=== PATIENT | male | born 1960 | race Caucasian/White ===

== ENCOUNTER 2016-12-14 11:22 | Emergency (ER) | payer OTHER ==
[~2016-12-14] VITALS: Ht 177.8 cm; Wt 90.7 kg
[~2016-12-14 11:22] MED LIST: ALPRAZOLAM0.5 M4 PO; AUGMENTIN 875 M1 TAB PO; AUGMENTIN 875-1 EACH PO; BYSTOLIC10 M1 PO; BYSTOLIC5 M1 PO; CIPRODEX 0.3%-7.5 ML OTIC; CRESTOR20 M2 PO; CYCLOBENZAPRINE10 M1 PO; DULOXETINE HCL60 MG PO; EPIPEN 2-P0.3 MG/0.3 IM; GABAPENTIN300 M2 PO; LISINOPRIL5 M1 PO; LORAZEPAM1 M1 PO; MEDROL4 M2 PO; MELOXICAM15 M1 PO; NASONEX0.05 MG/Ac INH; NOVOLOG FL100 UNIT/1 SC; OXYCODONE HCL20 M2 PO; OXYCONTIN30 M1 PO; OXYCONTIN80 M1 PO; PANTOPRAZOLE SO40 M1 PO; VICTOZA 2-0.6 MG/0.1 SC; XIGDUO XR 5 MG1 EAC1 PO
--- NOTE | 2016-12-14 12:50 | ED GI/GU/ABDOMINAL COMPLAINT ---
History of Present Illness General Chief Complaint: Abdominal Pain/Flank Pain Stated Complaint: L FLANK PAIN Source: patient Exam Limitations: no limitations Vital Signs & Intake/Output Vital Signs & Intake/Output ED Intake and Output 12/15 0000 12/14 1200 Intake Total 1000 Output Total Balance 1000 Intake, IV 1000 Patient 200 lb Weight Allergies Coded Allergies: pregabalin (From LYRICA) (Severe, RASH 09/03/16) coconut oil (Intermediate, HIVES, RASH, ITCHING 09/03/16) coconut (COCONUT WATER - ANAPHYLAXIS 09/03/16) Reconcile Medications Cyclobenzaprine HCl 10 MG TABLET 1 TAB PO QHS PRN MUSCLE SPASMS (Reported) Cyclobenzaprine HCl 5 MG TABLET 1 TAB PO TIDPRN PRN muscle spasms Dapagliflozin/Metformin HCl (Xigduo XR 5 MG-1,000 MG Tablet) 5 MG-1,000 MG TAB.BP.24H 1 TAB PO DAILY DM (Reported) Duloxetine HCl 60 MG CAPSULE.DR 1 CAP PO DAILY NERVE PAIN (Reported) Epinephrine (Epipen 2-Madhav) 0.3 MG/0.3 ML AUTO.INJCT 0.3 MG IM AD PRN ALLERGIC REACTION (Reported) Gabapentin 300 MG CAPSULE 2 CAP PO TID DIABETIC NEUROPATHY (Reported) Insulin Aspart, Recombinant (Novolog Flexpen) 100 UNIT/ML INSULN.PEN DM ( Reported) Liraglutide (Victoza 2-Madhav) 0.6 MG/0.1 ML (18 MG/3 ML) PEN.INJCTR 1.8 MG SC DAILY DM (Reported) Lisinopril 5 MG TABLET 1 TAB PO DAILY BP (Reported) Lorazepam 1 MG TABLET 1 TAB PO QPM COUNTERACTS BYSTOLIC (Reported) Meloxicam 15 MG TABLET 1 TAB PO DAILY DIABETIC NEUROPATHY (Reported) Oxycodone HCl 15 MG TABLET 1 TAB PO 4XDP PRN PAIN (Reported) Pantoprazole Sodium 40 MG TABLET.DR 1 TAB PO DAILY GI (Reported) Rosuvastatin Calcium (Crestor) 20 MG TABLET 1 TAB PO DAILY CHOLESTEROL ( Reported) Triage Note: 56 Y/O MALE C/O L FLANK PAIN, ONSET 4 HOURS AGO. PT STATES SUDDEN ONSET WITH NO TRAUMA OR INJURIES. DENIES OTHER COMPLAINTS, "I THOUGHT I JUST PULLED A MUSCLE". AFEBRILE. PT TAKES PERCOCET DAILY AND LAST DOSE 0800. Triage Nurses Notes Reviewed? yes HPI: This patient is a 56-year-old male who presented to the emergency department today for evaluation of the left flank pain which began approximately 4 hours prior to arrival in the emergency department. The patient denied a history of any kidney stones. The patient reported that the pain gets up to 10 out of 10 and comes and goes in waves. He reported that he occasionally gets intermittent sharp in his left mid abdomen. The patient reported that he did have an episode of nausea earlier, but not currently and with no associated vomiting. The patient denied any fevers, chills, chest pain, difficulty breathing, urinary burning, urgency, frequency, blood in the urine, bowel or bladder incontinence, or any saddle paresthesias. The patient reported that he takes 15 mg of Percocet throughout the day daily for, "a Worker's Compensation injury." Past History Travel History Traveled to [facility] past 21 day No Medical History Any Pertinent Medical History? see below for history Neurological: NONE EENT: "LT EAR PROBLEMS" Cardiovascular: hypertension Respiratory: NONE Gastrointestinal: GERD Hepatic: NONE Renal: NONE Musculoskeletal: NONE Psychiatric: NONE Endocrine: diabetes Blood Disorders: NONE Cancer(s): NONE ONCOLOGY CONSULTANT/Reproductive: NONE History of MRSA: No History of VRE: No History of CDIFF: No Tetanus Vaccine: 01/28/14 Surgical History Surgical History: non-contributory Psychosocial History Who do you live with Significant Other Services at Home None What is your primary language Maori Tobacco Use: Current Daily Use Daily Tobacco Use Amount/Type: => 5 Cigarettes daily Family History Hx Contributory? No Review of Systems Review of Systems Constitutional: Reports: no symptoms. EENTM: Reports: no symptoms. Respiratory: Reports: no symptoms. Cardiovascular: Reports: no symptoms. GI: Reports: see HPI. Genitourinary: Reports: no symptoms. Musculoskeletal: Reports: see HPI. Skin: Reports: no symptoms. Neurological/Psychological: Reports: no symptoms. Hematologic/Endocrine: Reports: see HPI. All Other Systems: Reviewed and Negative Physical Exam Physical Exam Gastrointestinal: normal bowel sounds, soft, non-tender, no organomegaly, no rebound or guarding. No peritoneal signs. Negative Patterson sign. No hernias point tenderness Comments: Well-developed well-nourished person in no acute distress HEENT: Normal EENT exam, normocephalic, moist mucous membranes Pupils equally round and reactive to light. Neck: Supple, no lymphadenopathy, full range of motion Back: Normal gait. No CVA tenderness. No midline tenderness Cardiovascular: Regular rate and rhythm with no murmurs Respiratory: No respiratory distress. Speaking in full sentences Extremity: Normal and equal pulses Neuro: Alert oriented x3, cranial nerves II through XII grossly intact. Skin: No appreciable rash on exposed skin, skin is warm and dry. Psych: Mood and affect is normal Core Measures ACS in differential dx? No Severe Sepsis Present: No Septic Shock Present: No Progress Differential Diagnosis: AAA, AMI, appendicitis, biliary colic, bowel obstruction , colon cancer, cholecystitis, diverticulitis, gastritis, hepatitis, ischemic bowel, inflamm bowel dis, pancreatitis, PUD/GERD, perforated viscous, pyelonephritis, ureterolithiasis, urinary retention, urethritis, UTI/pyelo Plan of Care: Orders Procedure Date/time Status CULTURE,URINE 12/14 1250 Active COMPREHENSIVE METABOLIC PANEL 12/14 1250 Complete CBC WITHOUT DIFFERENTIAL 12/14 1250 Complete URINALYSIS 12/14 1147 Complete Laboratory Tests 12/14/16 1441: Urine Color YEL, Urine Clarity CLEAR, Urine pH 6.0, Ur Specific [place] 1.020, Urine Protein NEG, Urine Ketones NEG, Urine Nitrite NEG, Urine Bilirubin NEG, Urine Urobilinogen 0.2, Ur Leukocyte Esterase NEG, Ur Microscopic EXAM NOT REQUIRED, Urine Hemoglobin NEG, Urine Glucose >=1000 H 12/14/16 1427: Anion Gap 8, Estimated GFR > 60, BUN/Creatinine Ratio 17.1, Glucose 153 H, Calcium 8.9, Total Bilirubin 0.7, AST 26, ALT 43, Alkaline Phosphatase 76, Total Protein 6.8, Albumin 4.1, Globulin 2.7, Albumin/Globulin Ratio 1.5 12/14/16 1330: CBC w Diff NO MAN DIFF REQ, RBC 5.72, MCV 85.5, MCH 29.5, RDW 12.7, MPV 8.6, Gran % 63.5, Lymphocytes % 28.9, Monocytes % 5.2, Eosinophils % 2.1, Basophils % 0.3, Absolute Granulocytes 5.3, Absolute Lymphocytes 2.4, Absolute Monocytes 0.4 , Absolute Eosinophils 0.2, Absolute Basophils 0, PUBS MCHC 34.5 Microbiology 12/14 1441 URINE ROUT: Urine Culture - RECD Diagnostic Imaging: Viewed by Me: CT Scan. Discussed w/RAD: CT Scan. Radiology Impression: PATIENT: JERILYN RAI PRESENT AGE: 56 PATIENT ACCOUNT NO: [id number] : 61 LOCATION: [facility] ORDERING PHYSICIAN: TIMO HUGHES PA-C SERVICE DATE: 12/14/163838 EXAM TYPE: CAT - CT ABD & PELVIS W/O IV CONTRAS EXAMINATION: CT ABDOMEN AND PELVIS WITHOUT CONTRAST CLINICAL INFORMATION: Left-sided flank pain, evaluate for urolithiasis. COMPARISON: None. TECHNIQUE: Multidetector volumetric imaging was performed from the superior aspect of the liver through the pubic symphysis. Sagittal and coronal reformatted images were obtained on the technologist's workstation. DLP: 504 mGy-cm. FINDINGS: Osseous structures imaging no focal destructive or sclerotic lesions. There is a small indirect left inguinal hernia containing only mesenteric fat. Fat along the right inguinal canal suggests a small lipoma. There are a few scattered left sided colonic diverticula without radiographic evidence of acute diverticulitis on this exam. Otherwise imaging through the gastrointestinal tract appears unremarkable. Imaging through the solid organs in the abdominal and pelvic cavity appear unremarkable. There is no evidence of lymphadenopathy. No aortic aneurysm. No intraperitoneal free fluid or free air. Lung bases are clear. Osseous structures unremarkable. IMPRESSION: 1. No evidence of an acute inflammatory intra-abdominal or pelvic abdominal process. 2. Descending and sigmoid colon diverticulosis without evidence of diverticulitis. Appendix is not identified on this exam. 3. Small left inguinal hernia. DICTATED BY: CHRISSY BUSH MD DATE/TIME DICTATED:12/14/161438 [employer] BOARD PANELS:NELL DATE/TIME TRANSCRIBED:12/14/161438 CONFIDENTIAL, DO NOT COPY WITHOUT APPROPRIATE AUTHORIZATION. <Electronically signed in Other Vendor System> SIGNED BY: CHRISSY BUSH MD 12/14/16 1456 Initial ED EKG: none Comments: 12/14/2016 4:11:12 PM: I was at the patient's bedside for reevaluation. He reported the pain is currently a 4 out of 10 and slightly better than on initial presentation. Updated him on the results of the CT scan results. No evidence of hydronephrosis or nephrolithiasis/ureterolithiasis. No evidence of urinary tract infection. The patient is afebrile and all vital signs are stable. He has received 1 L of IV fluids. He is currently resting comfortably on the stretcher and in no acute distress. Nontoxic appearing. This patient will likely have outpatient management for his symptoms and follow-up with his primary care physician which we discussed. Departure Departure Disposition: HOME OR SELF CARE Condition: Stable Clinical Impression Primary Impression: Left flank pain Referrals: REYNOLD CAUSEY PA-C (PCP/Family) Additional Instructions: Please call to make a follow-up appointment with your primary rn medicare. Please be sure to stay hydrated and take all previously prescribed medications for pain as directed. Take Flexeril as prescribed for muscle relaxation. Return to the emergency Department for any worsening symptoms or concerns. Departure Forms: Customer Survey General Discharge Information Prescriptions: Current Visit Scripts Cyclobenzaprine HCl 1 TAB PO TIDPRN PRN muscle spasms #12 TAB
[2016-12-14 13:53] LABS: ABSOLUTE BASOPHIL COUNT 0 /CUMM (0.0-0.2); ABSOLUTE EOSINOPHIL COUNT 0.2 /CUMM (0.0-0.7); ABSOLUTE GRANULOCYTE CT 5.3 /CUMM (1.4-6.5); ABSOLUTE LYMPH COUNT 2.4 /CUMM (1.2-3.4); ABSOLUTE MONOCYTE COUNT 0.4 /CUMM (0.10-0.60); BASOPHIL % 0.3 % (0.0-2.0); EOSINOPHIL % 2.1 % (0-5); GRANULOCYTE % 63.5 % (42.2-75.2); MEAN CORPUSCULAR HGB 29.5 PG (27.0-31.0); MEAN CORPUSCULAR HGB CONC 34.5 G/DL (33.0-37.0); MEAN CORPUSCULAR VOLUME 85.5 FL (80.0-94.0); MEAN PLATELET VOLUME 8.6 FL (7.4-10.4); PLATELET COUNT 166 /CUMM (130-400); RBC DISTRIBUTION WIDTH 12.7 % (11.5-14.5); RED BLOOD CELL CT 5.72 /CUMM (4.70-6.10); WHITE BLOOD CELL COUNT 8.3 /CUMM (4.8-10.8)
--- NOTE | 2016-12-14 14:56 | CT SCAN REPORT ---
EXAMINATION: CT ABDOMEN AND PELVIS WITHOUT CONTRAST CLINICAL INFORMATION: Left-sided flank pain, evaluate for urolithiasis. COMPARISON: None. TECHNIQUE: Multidetector volumetric imaging was performed from the superior aspect of the liver through the pubic symphysis. Sagittal and coronal reformatted images were obtained on the technologist's workstation. DLP: 504 mGy-cm. FINDINGS: Osseous structures imaging no focal destructive or sclerotic lesions. There is a small indirect left inguinal hernia containing only mesenteric fat. Fat along the right inguinal canal suggests a small lipoma. There are a few scattered left sided colonic diverticula without radiographic evidence of acute diverticulitis on this exam. Otherwise imaging through the gastrointestinal tract appears unremarkable. Imaging through the solid organs in the abdominal and pelvic cavity appear unremarkable. There is no evidence of lymphadenopathy. No aortic aneurysm. No intraperitoneal free fluid or free air. Lung bases are clear. Osseous structures unremarkable. IMPRESSION: 1. No evidence of an acute inflammatory intra-abdominal or pelvic abdominal process. 2. Descending and sigmoid colon diverticulosis without evidence of diverticulitis. Appendix is not identified on this exam. 3. Small left inguinal hernia.
[2016-12-14] MEDS ORDERED: OXYCODONE HCL15 M1 PO (16:00)
[2016-12-14] MEDS ORDERED: CYCLOBENZAPRINE10 M1 PO (16:01)
[2016-12-14] MEDS ORDERED: CYCLOBENZAPRINE5 M2 PO (16:44)
[2016-12-14 17:30] VITALS: BP 139/82
== END 2016-12-14 17:47 ==
LOC: ERH 11:22
PROVIDERS: Physician Assistant
DX: R10.32 Left lower quadrant pain (principal)
CPT/HCPCS: 74176; 81003; 87086; 96374; 96375; J1200; J1885

== ENCOUNTER 2016-12-16 12:28 | Emergency (ER) | payer OTHER ==
[~2016-12-16] VITALS: Ht 177.8 cm; Wt 90.7 kg
[~2016-12-16 12:28] MED LIST changes: +CYCLOBENZAPRINE5 M2 PO; +OXYCODONE HCL15 M1 PO
--- NOTE | 2016-12-16 13:03 | ED GI/GU/ABDOMINAL COMPLAINT ---
History of Present Illness General Chief Complaint: Abdominal Pain/Flank Pain Stated Complaint: LT FLANK PAIN Source: patient Exam Limitations: no limitations Vital Signs & Intake/Output Vital Signs & Intake/Output Vital Signs Date Time Temp Pulse Resp B/P Pulse O2 O2 Flow FiO2 Ox Delivery Rate 12/16 1505 98.7 74 18 122/75 96 Room Air 12/16 1354 97.8 78 22 127/69 100 Room Air 12/16 1239 96.9 72 20 152/85 99 Room Air Allergies Coded Allergies: morphine (Severe, RASH 12/16/16) pregabalin (From LYRICA) (Severe, RASH 09/03/16) coconut oil (Intermediate, HIVES, RASH, ITCHING 09/03/16) coconut (COCONUT WATER - ANAPHYLAXIS 09/03/16) Reconcile Medications Cyclobenzaprine HCl 10 MG TABLET 1 TAB PO QHS PRN MUSCLE SPASMS (Reported) Dapagliflozin/Metformin HCl (Xigduo XR 5 MG-1,000 MG Tablet) 5 MG-1,000 MG TAB.BP.24H 1 TAB PO DAILY DM (Reported) Duloxetine HCl 60 MG CAPSULE.DR 1 CAP PO DAILY NERVE PAIN (Reported) Epinephrine (Epipen 2-Madhav) 0.3 MG/0.3 ML AUTO.INJCT 0.3 MG IM AD PRN ALLERGIC REACTION (Reported) Gabapentin 300 MG CAPSULE 2 CAP PO TID DIABETIC NEUROPATHY (Reported) Ibuprofen 600 MG TABLET 1 TAB PO Q6 PRN PAIN with food Insulin Aspart, Recombinant (Novolog Flexpen) 100 UNIT/ML INSULN.PEN DM ( Reported) Liraglutide (Victoza 2-Madhav) 0.6 MG/0.1 ML (18 MG/3 ML) PEN.INJCTR 1.8 MG SC DAILY DM (Reported) Lisinopril 5 MG TABLET 1 TAB PO DAILY BP (Reported) Lorazepam 1 MG TABLET 1 TAB PO QPM PRN COUNTERACTS BYSTOLIC (Reported) Meloxicam 15 MG TABLET 1 TAB PO DAILY DIABETIC NEUROPATHY (Reported) Oxycodone HCl 15 MG TABLET 1 TAB PO 4XDP PRN PAIN (Reported) Oxycodone HCl/Acetaminophen (Percocet 5-325 MG Tablet) 5 MG-325 MG TABLET 1 TAB PO Q4-6 PRN BREAKTHROUGH PAIN Pantoprazole Sodium 40 MG TABLET.DR 1 TAB PO DAILY GI (Reported) Rosuvastatin Calcium (Crestor) 20 MG TABLET 1 TAB PO DAILY CHOLESTEROL ( Reported) Triage Note: PT TO ED C/O LEFT FLANK PAIN. SEEN IN ED 2 DAYS AGO FOR SAME. STATES NOW HE FEELS A "TEARING" PAIN. DENIES N/V/D. DENIES S/S. Triage Nurses Notes Reviewed? yes Onset: Abrupt Duration: day(s): (2) Timing: multiple episodes today Quality/Severity: moderate, sharpness Location: left flank Activities at Onset: none Modifying Factors: Worsens With: movement. HPI: 56 year old male who prsents to the ED with persistent left flank pain. He was seen in D 2 days previously for the same pain. He states he is supposed to follow up with his doctor in the office but states that he can't wait. Pain is worse with movement and deep breath. CT abdomen/pelvis done in the ED 2 days ago. Past History Travel History Traveled to [place] past 21 day No Medical History Any Pertinent Medical History? see below for history Neurological: NONE EENT: "LT EAR PROBLEMS" Cardiovascular: hypertension Respiratory: NONE Gastrointestinal: GERD Hepatic: NONE Renal: NONE Musculoskeletal: NONE Psychiatric: NONE Endocrine: diabetes Blood Disorders: NONE Cancer(s): NONE FLIGHT SERVICE SPECIALIST/Reproductive: NONE History of MRSA: No History of VRE: No History of CDIFF: No Tetanus Vaccine: 01/28/14 Surgical History Surgical History: non-contributory Psychosocial History Who do you live with Significant Other Services at Home None What is your primary language Estonian Tobacco Use: Current Daily Use Daily Tobacco Use Amount/Type: => 5 Cigarettes daily ETOH Use: denies use Illicit Drug Use: denies illicit drug use Family History Hx Contributory? No Review of Systems Review of Systems Constitutional: Denies: chills, fever. EENTM: Reports: no symptoms. Respiratory: Denies: cough, short of breath, sputum production. Cardiovascular: Denies: chest pain, palpitations. GI: Reports: abdominal pain. Genitourinary: Reports: no symptoms. Musculoskeletal: Reports: back pain. Skin: Denies: rash. Neurological/Psychological: Reports: no symptoms. Hematologic/Endocrine: Denies: bruising, bleeding. Immunologic/Allergic: Denies: splenectomy. All Other Systems: Reviewed and Negative Physical Exam Physical Exam General Appearance: well developed/nourished, alert, awake, anxious, moderate distress Head: atraumatic, normal appearance Eyes: Bilateral: normal appearance, PERRL, EOMI. Ears, Nose, Throat, Mouth: hearing grossly normal, moist mucous membrane, Tympanic normal Neck: normal inspection, supple, full range of motion Respiratory: normal breath sounds, chest non-tender, no respiratory distress Cardiovascular: regular rate/rhythm Peripheral Pulses: 2+ radial (R), 2+ radial (L) Gastrointestinal: normal bowel sounds, soft, non-tender Back: normal inspection, tender to palpation Neurologic/Psych: no motor/sensory deficits, awake, alert, oriented x 3 Skin: intact, normal color, warm/dry Core Measures ACS in differential dx? No Severe Sepsis Present: No Septic Shock Present: No Progress Differential Diagnosis: ureterolithiasis, UTI/pyelo, PE, MUSCULOSKELETAL PAIN, SHINGLES Plan of Care: Orders Procedure Date/time Status Telemetry/Diesel Stationary Engineer 12/16 1317 Active PARTIAL THROMBOPLASTIN TIME 12/16 1315 Complete PROTHROMBIN TIME 12/16 1315 Complete D-DIMER 12/16 1315 Complete URINALYSIS 12/16 1314 Active COMPREHENSIVE METABOLIC PANEL 12/16 1314 Complete CBC WITHOUT DIFFERENTIAL 12/16 1314 Complete Laboratory Tests 12/16/16 1432: PT 11.0, INR 1.05, APTT 29, D-Dimer < 200 12/16/16 1352: Anion Gap 7, Estimated GFR > 60, BUN/Creatinine Ratio 16.3, Glucose 207 H, Calcium 9.2, Total Bilirubin 0.6, AST 21, ALT 38, Alkaline Phosphatase 61, Total Protein 6.0 L, Albumin 3.5, Globulin 2.5, Albumin/Globulin Ratio 1.4 12/16/16 1318: CBC w Diff NO MAN DIFF REQ, RBC 6.01, MCV 87.6, MCH 29.3, RDW 12.6, MPV 8.8, Gran % 63.3, Lymphocytes % 28.6, Monocytes % 5.9, Eosinophils % 2.0, Basophils % 0.2, Absolute Granulocytes 5.5, Absolute Lymphocytes 2.5, Absolute Monocytes 0.5 , Absolute Eosinophils 0.2, Absolute Basophils 0, PUBS MCHC 33.4 Patient much improved after IV meds. D-Dimer is negative. Repeat labs wnl. He will follow up with his PCP in the office. labs, tele monitor, d-dimer. iv toradol, iv valium ordered. (ALE CRAWFORD,ANTIONETTE) Initial ED EKG: NSR Departure Departure Time of Disposition: 1603 Disposition: HOME OR SELF CARE Condition: Stable Clinical Impression Primary Impression: Flank pain Referrals: PADILLA HESS,REYNOLD Jenkins (PCP/Family) Additional Instructions: Continue you Flexeril. Take the ibuprofen and a Percocet as directed. Please follow up with her doctor on Sunday. Return to the ER for any changing or worsening symptoms. Departure Forms: Customer Survey General Discharge Information Prescriptions: Current Visit Scripts Ibuprofen 1 TAB PO Q6 PRN PAIN #30 TAB with food Oxycodone HCl/Acetaminophen (Percocet 5-325 MG Tablet) 1 TAB PO Q4-6 PRN BREAKTHROUGH PAIN #10 TAB
[2016-12-16 13:31] LABS: ABSOLUTE BASOPHIL COUNT 0 /CUMM (0.0-0.2); ABSOLUTE EOSINOPHIL COUNT 0.2 /CUMM (0.0-0.7); ABSOLUTE GRANULOCYTE CT 5.5 /CUMM (1.4-6.5); ABSOLUTE LYMPH COUNT 2.5 /CUMM (1.2-3.4); ABSOLUTE MONOCYTE COUNT 0.5 /CUMM (0.10-0.60); BASOPHIL % 0.2 % (0.0-2.0); GRANULOCYTE % 63.3 % (42.2-75.2); HEMATOCRIT 52.6 % (42-52); MEAN CORPUSCULAR HGB 29.3 PG (27.0-31.0); MEAN CORPUSCULAR HGB CONC 33.4 G/DL (33.0-37.0); MEAN CORPUSCULAR VOLUME 87.6 FL (80.0-94.0); MEAN PLATELET VOLUME 8.8 FL (7.4-10.4); PLATELET COUNT 153 /CUMM (130-400); RBC DISTRIBUTION WIDTH 12.6 % (11.5-14.5); RED BLOOD CELL CT 6.01 /CUMM (4.70-6.10); WHITE BLOOD CELL COUNT 8.6 /CUMM (4.8-10.8)
[2016-12-16 14:54] LABS: PTT 29 SEC (25-37)
[2016-12-16] MEDS ORDERED: IBUPROFEN600 M1 PO (16:04)
[2016-12-16] MEDS ORDERED: PERCOCET 5-3251 EACH PO (16:04)
[2016-12-16 16:35] VITALS: BP 120/70
== END 2016-12-16 16:35 ==
LOC: ERH 12:28
PROVIDERS: Emergency Medicine
DX: R10.9 Unspecified abdominal pain (principal)
CPT/HCPCS: 96374; 96375; J1885; J3360

== ENCOUNTER 2017-01-03 20:29 | Emergency (ER) | payer OTHER ==
[~2017-01-03] VITALS: Ht 177.8 cm; Wt 90.7 kg
[~2017-01-03 20:29] MED LIST changes: +IBUPROFEN600 M1 PO; +PERCOCET 5-3251 EACH PO
[2017-01-03 20:49] VITALS: BP 147/83
--- NOTE | 2017-01-03 22:01 | ED GENERAL ADULT ---
History of Present Illness General Chief Complaint: General Adult Stated Complaint: ?HIGH BS Source: patient Exam Limitations: no limitations Vital Signs & Intake/Output Vital Signs & Intake/Output Vital Signs Date Time Temp Pulse Resp B/P Pulse O2 O2 Flow FiO2 Ox Delivery Rate 01/03 2049 97.7 57 20 147/83 98 Room Air Allergies Coded Allergies: morphine (Severe, RASH 12/16/16) pregabalin (From LYRICA) (Severe, RASH 09/03/16) coconut oil (Intermediate, HIVES, RASH, ITCHING 09/03/16) coconut (COCONUT WATER - ANAPHYLAXIS 09/03/16) Reconcile Medications Amoxicillin/Potassium Clav (Augmentin 875-125 Tablet) 875 MG-125 MG TABLET 1 TAB PO BID FINGER INFECTION Cyclobenzaprine HCl 10 MG TABLET 1 TAB PO QHS PRN MUSCLE SPASMS (Reported) Dapagliflozin/Metformin HCl (Xigduo XR 5 MG-1,000 MG Tablet) 5 MG-1,000 MG TAB.BP.24H 1 TAB PO DAILY DM (Reported) Duloxetine HCl 60 MG CAPSULE.DR 1 CAP PO DAILY NERVE PAIN (Reported) Epinephrine (Epipen 2-Madhav) 0.3 MG/0.3 ML AUTO.INJCT 0.3 MG IM AD PRN ALLERGIC REACTION (Reported) Gabapentin 300 MG CAPSULE 2 CAP PO TID DIABETIC NEUROPATHY (Reported) Ibuprofen 600 MG TABLET 1 TAB PO Q6 PRN PAIN with food Insulin Aspart, Recombinant (Novolog Flexpen) 100 UNIT/ML INSULN.PEN DM ( Reported) Liraglutide (Victoza 2-Madhav) 0.6 MG/0.1 ML (18 MG/3 ML) PEN.INJCTR 1.8 MG SC DAILY DM (Reported) Lisinopril 5 MG TABLET 1 TAB PO DAILY BP (Reported) Lorazepam 1 MG TABLET 1 TAB PO QPM PRN COUNTERACTS BYSTOLIC (Reported) Meloxicam 15 MG TABLET 1 TAB PO DAILY DIABETIC NEUROPATHY (Reported) Oxycodone HCl 15 MG TABLET 1 TAB PO 4XDP PRN PAIN (Reported) Oxycodone HCl/Acetaminophen (Percocet 5-325 MG Tablet) 5 MG-325 MG TABLET 1 TAB PO Q4-6 PRN BREAKTHROUGH PAIN Pantoprazole Sodium 40 MG TABLET.DR 1 TAB PO DAILY GI (Reported) Rosuvastatin Calcium (Crestor) 20 MG TABLET 1 TAB PO DAILY CHOLESTEROL ( Reported) Triage Note: TRIAGE: PT TO ER C/C HIGH BLOOD SUGAR ?'S R/T ?INFECTION TO RT HAND. STATES TOOK BLOOD SUGAR AT HOME WAS 365, USUALLY IS BELOW 200. GAVE SELF 12 UNITS INSULIN (DOES NOT REQUIRE INSULIN DAILY) AND 30 MIN LATER WAS 320 SO THEN GAVE SELF 10 UNITS INSULIN AND 30 MIN LATER WAS 324. F/S 224 AT TRIAGE. STATES HAS HAD SPOT TO R MIDDLE FINGER, THOUGHT IT WAS A SPLINTER. HAS REDNESS/SWELLING TO FINGER. Triage Nurses Notes Reviewed? yes Onset: Gradual Duration: constant Timing: recent history Severity: moderate Severity Numbers: 5 HPI: Patient is a 56-year-old male with past medical history of type 2 diabetes insulin-dependent who presents emergency room with an unknown duration or onset of seemingly a puncture wound to his right third digit of his hand dorsal aspect which he states that for the past 3 days he's noticed worsening swelling and redness to the region however no active discharge has occurred. Patient does present to the emergency room stating that his blood sugar has become uncontrolled today noted to be above 300 patient took 12 units of insulin prior to arrival in which he noted the blood sugar then to go up and then took between 4 and 6 units prior to arrival. Denies any fever or chills. (JILLIAN MYRICK) Past History Travel History Traveled to [place] past 21 day No Medical History Any Pertinent Medical History? see below for history Neurological: NONE EENT: "LT EAR PROBLEMS" Cardiovascular: hypertension Respiratory: NONE Gastrointestinal: GERD Hepatic: NONE Renal: NONE Musculoskeletal: NONE Psychiatric: NONE Endocrine: diabetes Blood Disorders: NONE Cancer(s): NONE CLINICAL DATA ABSTRACTOR/Reproductive: NONE History of MRSA: No History of VRE: No History of CDIFF: No Tetanus Vaccine: 01/28/14 Surgical History Surgical History: non-contributory Psychosocial History Who do you live with Significant Other Services at Home None What is your primary language Nigerian Tobacco Use: Current Daily Use Daily Tobacco Use Amount/Type: => 5 Cigarettes daily ETOH Use: occasional use Illicit Drug Use: denies illicit drug use Family History Hx Contributory? No (JILLIAN MYRICK) Review of Systems Review of Systems Constitutional: Reports: no symptoms. EENTM: Reports: no symptoms. Respiratory: Reports: no symptoms. Cardiovascular: Reports: no symptoms. GI: Reports: no symptoms. Genitourinary: Reports: no symptoms. Musculoskeletal: Reports: see HPI, joint pain, joint swelling. Skin: Reports: see HPI. Neurological/Psychological: Reports: no symptoms. Hematologic/Endocrine: Reports: no symptoms. Immunologic/Allergic: Reports: no symptoms. All Other Systems: Reviewed and Negative (JILLIAN MYRICK) Physical Exam Physical Exam General Appearance: no apparent distress, alert, comfortable Comments: Well-developed well-nourished no apparent distress. HEENT: Atraumatic, extraocular motion intact Neck: Supple, no lymphadenopathy Back: Nontender Respiratory: No respiratory distress Extremities: Right hand-third digit finger noted dorsal aspect of the PIP joint well healing puncture wound no active discharge out surrounding swelling no fluctuance no erythema no warmth noted mild decreased active range of motion noted with flexion and full extension noted dermatomes intact Neuro: Alert and oriented x3 Psych: Mood affect normal, normal memory normal judgment. Core Measures ACS in differential dx? No CVA/TIA Diagnosis: No Severe Sepsis Present: No Septic Shock Present: No (JILLIAN MYRICK) Progress Differential Diagnoses I considered the following diagnoses in my evaluation of the patient: [ Tenosynovitis, cellulitis, septic arthritis, abscess] Plan of Care: Orders Procedure Date/time Status FingerStick- Glucose 01/03 2207 Active Patient's fingerstick glucose was 101 Patient has concerns of infection from puncture site however no signs of fluctuance or abscess concerns at this time minimal suspicion of tenosynovitis or septic arthritis patient was afebrile. Patient was strongly advised to follow-up with primary care doctor as he has an appointment on Sunday. Patient was strongly advised to return to emergency room if symptoms worsen and he will comply (JILLIAN MYRICK) Initial ED EKG: normal intervals, normal p-waves, normal QRS complex (JILLIAN MYRICK) Departure Departure Disposition: HOME OR SELF CARE Condition: Stable Clinical Impression Primary Impression: Finger infection Referrals: PADILLA HESS,REYNOLD Jenkins (PCP/Family) Additional Instructions: As discussed follow-up with primary care doctor's appointment on Sunday for recheck of symptoms. Begin the prescription of Augmentin as directed. If symptoms worsen or IF develop worsening signs of infection such as redness pain swelling discharge return to the emergency room immediately. Prescriptions waiting a [facility] pharmacy. Continue check blood sugar and administered insulin sliding scale as directed Departure Forms: Customer Survey General Discharge Information Prescriptions: Current Visit Scripts Amoxicillin/Potassium Clav (Augmentin 875-125 Tablet) 1 TAB PO BID #20 TAB (JILLIAN MYRICK) PA/CHIMNEY CONSTRUCTION SUPERVISOR Co-Sign Statement Statement: ED Attending supervision documentation- [] I saw and evaluated the patient. I have also reviewed all the pertinent lab results and diagnostic results. I agree with the findings and the plan of care as documented in the PA's/CHIMNEY CONSTRUCTION SUPERVISOR's documentation. [X] I have reviewed the ED Record and agree with the PA's/CHIMNEY CONSTRUCTION SUPERVISOR's documentation. [] Additions or exceptions (if any) to the PAs/CHIMNEY CONSTRUCTION SUPERVISOR's note and plan are summarized below: [] (SILVERIO CRAWFORD,AMILCAR Magana) Critical Care Note Critical Care Note Critical Care Time: non-applicable (JILLIAN MYRICK)
[2017-01-03] MEDS ORDERED: AUGMENTIN 875-1 EACH PO (22:11)
== END 2017-01-03 22:21 ==
LOC: ERH 20:29
DX: L08.9 Local infection of the skin and subcutaneous tissue, unspecified (principal)

== ENCOUNTER 2017-01-26 13:59 | Emergency (ER) | payer OTHER ==
[~2017-01-26] VITALS: Ht 177.8 cm; Wt 90.7 kg
[2017-01-26 14:03] VITALS: BP 124/75
--- NOTE | 2017-01-26 14:24 | ED UPPER/LOWER EXTREMITY COMPL ---
History of Present Illness General Chief Complaint: Foot or Ankle Injury Stated Complaint: R FOOT INJURY Source: patient Exam Limitations: no limitations Vital Signs & Intake/Output Vital Signs & Intake/Output Vital Signs Date Time Temp Pulse Resp B/P Pulse O2 O2 Flow FiO2 Ox Delivery Rate 01/26 1403 96.4 64 16 124/75 96 Room Air Allergies Coded Allergies: morphine (Severe, RASH 12/16/16) pregabalin (From LYRICA) (Severe, RASH 09/03/16) coconut oil (Intermediate, HIVES, RASH, ITCHING 09/03/16) coconut (COCONUT WATER - ANAPHYLAXIS 09/03/16) Reconcile Medications Cyclobenzaprine HCl 10 MG TABLET 1 TAB PO QHS PRN MUSCLE SPASMS (Reported) Dapagliflozin/Metformin HCl (Xigduo XR 5 MG-1,000 MG Tablet) 5 MG-1,000 MG TAB.BP.24H 1 TAB PO DAILY DM (Reported) Duloxetine HCl 60 MG CAPSULE.DR 1 CAP PO DAILY NERVE PAIN (Reported) Epinephrine (Epipen 2-Madhav) 0.3 MG/0.3 ML AUTO.INJCT 0.3 MG IM AD PRN ALLERGIC REACTION (Reported) Gabapentin 300 MG CAPSULE 2 CAP PO TID DIABETIC NEUROPATHY (Reported) Ibuprofen 600 MG TABLET 1 TAB PO Q6 PRN PAIN with food Insulin Aspart, Recombinant (Novolog Flexpen) 100 UNIT/ML INSULN.PEN DM ( Reported) Liraglutide (Victoza 2-Madhav) 0.6 MG/0.1 ML (18 MG/3 ML) PEN.INJCTR 1.8 MG SC DAILY DM (Reported) Lisinopril 5 MG TABLET 1 TAB PO DAILY BP (Reported) Lorazepam 1 MG TABLET 1 TAB PO QPM PRN COUNTERACTS BYSTOLIC (Reported) Meloxicam 15 MG TABLET 1 TAB PO DAILY DIABETIC NEUROPATHY (Reported) Oxycodone HCl 15 MG TABLET 1 TAB PO 4XDP PRN PAIN (Reported) Oxycodone HCl/Acetaminophen (Percocet 5-325 MG Tablet) 5 MG-325 MG TABLET 1 TAB PO Q4-6 PRN BREAKTHROUGH PAIN Pantoprazole Sodium 40 MG TABLET.DR 1 TAB PO DAILY GI (Reported) Rosuvastatin Calcium (Crestor) 20 MG TABLET 1 TAB PO DAILY CHOLESTEROL ( Reported) Triage Note: PT PRESENT TO THE ER S/P GETTING OUT OF CAR AT 5AM AND STEPPING IN HIS LEFT LEG WRONG.. PT STATES THAT THE PAIN IS A 5/10 BUT WHEN HE PUTS WEIGHT ON ITS A 10/10 Triage Nurses Notes Reviewed? yes Onset: Abrupt Duration: constant Timing: single episode today Severity: severe HPI: Patient is a 56-year-old male who presents emergency and that today in the morning while stepping out of his vehicle approximately one foot in the air he stepped down with his right foot and had acute onset of stabbing right lateral ankle and foot pain. Patient states that ambulation makes worse. Denies any twisting mechanism or fall. Denies any significant history of ankle or foot pain or surgeries. Patient does take on a regular scheduled basis pain medications of NSAIDs and narcotics for CHRONIC PAIN. Denies any ankle pain. Past History Travel History Traveled to [place] past 21 day No Medical History Any Pertinent Medical History? see below for history Neurological: NONE EENT: "LT EAR PROBLEMS" Cardiovascular: hypertension Respiratory: NONE Gastrointestinal: GERD Hepatic: NONE Renal: NONE Musculoskeletal: NONE Psychiatric: NONE Endocrine: diabetes Blood Disorders: NONE Cancer(s): NONE LAST DIPPER/Reproductive: NONE History of MRSA: No History of VRE: No History of CDIFF: No Tetanus Vaccine: 01/28/14 Surgical History Surgical History: non-contributory Psychosocial History Who do you live with Significant Other Services at Home None What is your primary language Sudanese Tobacco Use: Current Daily Use Daily Tobacco Use Amount/Type: => 5 Cigarettes daily Family History Hx Contributory? No Review of Systems Review of Systems Constitutional: Reports: no symptoms. EENTM: Reports: no symptoms. Respiratory: Reports: no symptoms. Cardiovascular: Reports: no symptoms. Gastrointestinal/Abdominal: Reports: no symptoms. Genitourinary: Reports: no symptoms. Musculoskeletal: Reports: see HPI, joint pain. Skin: Reports: no symptoms. Neurological/Psychological: Reports: no symptoms. Hematologic/Endocrine: Reports: no symptoms. Immunological: Reports: no symptoms. All Other Systems: Reviewed and Negative Physical Exam Physical Exam General Appearance: no apparent distress, alert, comfortable Neurologic/Tendon: normal sensation, normal motor functions, normal tendon functions, responds to pain, no evidence tendon injury Skin: intact, normal color, warm/dry Comments: Well-developed well-nourished no apparent distress. HEENT: Atraumatic, extraocular motion intact Neck: Supple, no lymphadenopathy Back: Nontender Respiratory: No respiratory distress Extremities: Right knee normal section nontender full active range of motion Right ankle normal inspection lateral inferior malleoli point tenderness full active range of motion with mild pain noted with dorsiflexion and plantarflexion Right foot noted lateral point tenderness and mild swelling Dermatomes intact capillary refill intact pedal pulse +2 Neuro: Alert and oriented x3 Psych: Mood affect normal, normal memory normal judgment. Progress Differential Diagnosis: arterial insufficiency, compartment syndrome, contusion, dislocation, DVT, fracture, gout, septic arthritis, sprain, tendon injury Plan of Care: Orders Procedure Date/time Status Durable Medical Equipment 01/26 1534 Active Durable Medical Equipment 01/26 1533 Active No osseous injury noted on x-rays. Jay wrap ankle Stirrup was placed. Post neurovascular was intact crutches were revised for weightbearing as tolerated status. (JORGE GIRON,JILLIAN) Diagnostic Imaging: Viewed by Me: Radiology Read. Radiology Impression: no acute abnormality, no fracture, no dislocation Comments: PATIENT: JERILYN RAI PRESENT AGE: 56 PATIENT ACCOUNT NO: [id number] : 61 LOCATION: [facility] ORDERING PHYSICIAN: JILLIAN GIRON SERVICE DATE: 01/26/17 EXAM TYPE: RAD - XRY-ANKLE 3 OR MORE VIEWS R; XRY-FOOT COMPLETE, R EXAMINATION: 1. RIGHT FOOT. 2. RIGHT ANKLE. CLINICAL INFORMATION: Pain. COMPARISON: None. TECHNIQUE: 1. Right foot. 3 views 2. Right ankle. 3 views. FINDINGS: 1. Right foot. No fracture. No dislocation. Bone and joint are normal. No soft tissue abnormality. 2. Right ankle: No fracture. No dislocation. Ankle mortise is congruent. IMPRESSION: 1. Right foot. Normal. 2. Right ankle. Normal Departure Departure Disposition: HOME OR SELF CARE Condition: Stable Clinical Impression Primary Impression: Right ankle sprain Secondary Impressions: Right foot sprain Referrals: PADILLA HESS,REYNOLD Jenkins (PCP/Family) Additional Instructions: As discussed begin elevating THE foot for swelling. Begin using the Jay wrap and ankle stirrup for support and stability and swelling. Begin and continue your previously prescribed pain medications as directed. If no better in 5 days follow-up with your established orthopedic doctor. If symptoms worsen return to emergency room. Begin using crutches UNTIL YOU CAN walk without pain Departure Forms: Customer Survey General Discharge Information
--- NOTE | 2017-01-26 15:21 | RADIOLOGY REPORT ---
EXAMINATION: 1. RIGHT FOOT. 2. RIGHT ANKLE. CLINICAL INFORMATION: Pain. COMPARISON: None. TECHNIQUE: 1. Right foot. 3 views 2. Right ankle. 3 views. FINDINGS: 1. Right foot. No fracture. No dislocation. Bone and joint are normal. No soft tissue abnormality. 2. Right ankle: No fracture. No dislocation. Ankle mortise is congruent. IMPRESSION: 1. Right foot. Normal. 2. Right ankle. Normal
== END 2017-01-26 16:11 ==
LOC: ERH 13:59
DX: S93.401A Sprain of unspecified ligament of right ankle, initial encounter (principal); S93.601A Unspecified sprain of right foot, initial encounter; X58.XXXA Exposure to other specified factors, initial encounter; Y93.89 Activity, other specified; Y92.9 Unspecified place or not applicable
CPT/HCPCS: 73610-RT; 73630-RT